=== PATIENT | female | born 1975 | race Native Hawaiian/Other Pacific Islander ===

== ENCOUNTER 2025-01-17 10:47 | Emergency (ER) | payer MEDICAID ==
[~2025-01-17] VITALS: Ht 152.4 cm; Wt 45.4 kg
[2025-01-17] MEDS: IV NORMAL SALINE 1000 ML BAG IV ONE ×2 (11:21→12:34)
[2025-01-17 11:28] LABS: PLATELET COUNT (AUTO) 114 K/uL (179-408); RED BLOOD CELL COUNT(AUTO) 4.33 MIL/uL (3.63-4.92); RED CELL DISTRIBUTION WIDTH 13.6 % (12.3-17.7); WHITE BLOOD COUNT (AUTO) 4.7 K/uL (3.8-11.8)
[2025-01-17 11:30] LABS: CREATININE 0.6 mg/dL (0.6-1.3); SODIUM SERUM 141.0 mmol/L (136-145); UREA NITROGEN, BLOOD 17.0 mg/dL (7-18)
[2025-01-17 11:36] LABS: ASPARTATE AMINOTRANSFERASE 23.0 U/L (15-37); TOTAL PROTEIN, SERUM 8.2 g/dL (6.4-8.2)
[2025-01-17 11:49] LABS: LACTIC ACID 2.1 mmol/L (0.4-2.0)
[2025-01-17 12:21] LABS: *URINE HCG, QUAL NEGATIVE (NEGATIVE)
[2025-01-17 12:25] LABS: *BILIRUBIN,URIN NEGATIVE (NEGATIVE); *CLARITY,URINE CLEAR (CLEAR); *COLOR,URINE YELLOW (YELLOW); *KETONES,URINE NEGATIVE (NEGATIVE); *PROTEIN,URINE NEGATIVE (NEGATIVE); *UROBILINOGEN,URINE 0.2 E.U./dl (NORMAL); LEUKOCYTE ESTERASE ,URINE TRACE (NEGATIVE); NITRITE, URINE NEGATIVE (NEGATIVE); UGLUCOSE NEGATIVE (NEGATIVE)
[2025-01-17 12:26] LABS: *BLOOD, URINE TRACE (NEGATIVE); SQUAMOUS EPITHELIAL CELL,UR FEW /HPF (NONE SEEN)
[2025-01-17] MEDS ORDERED: ACETAMINOPHEN 500 MG TABLET ONE (12:29)
[2025-01-17] MEDS: ACETAMINOPHEN 500 MG TABLET PO ONE (12:34)
[2025-01-17] MEDS ORDERED: CEFTRIAXONE /D5W 50ML IVPB **ER PYXIS IV ONE (13:25)
[2025-01-17] MEDS ORDERED: AMOX-430 PO (14:29)
[2025-01-17] MEDS ORDERED: IBUP-1955 PO (14:29)
[2025-01-17 14:54] VITALS: BP 119/78
[2025-01-17 16:09] VITALS: BP 123/80; O2SAT 99
== END 2025-01-17 16:14 | disposition home or self-care (01) ==
LOC: ER 10:47
DX: N39.0 Urinary tract infection, site not specified (principal); R10.32 Left lower quadrant pain; R51.9 Headache, unspecified; Z60.3 Acculturation difficulty; Z20.822 Contact with and (suspected) exposure to COVID-19
CPT/HCPCS: 36415; 71045; 83605; 83690; 84703; 85025; 87040; A4606; A4663; A9150; J0696; J7040